=== PATIENT | female | born 2000 | race Hispanic/Latino ===

== ENCOUNTER 2021-02-06 16:53 | Outpatient (CLI) | payer MEDICAID ==
[2021-02-06] MEDS ORDERED: LACTATED RINGERS 500 ML IV ONE (18:20)
[2021-02-06 19:14] LABS: Bacteria,Urine 3+ /HPF (Negative); Bilirubin,Urine NEG (Negative); Blood,Urine NEG (Negative); Color,Urine Yellow (Yellow); Mucus,Urine FEW /HPF; Protein,Urine <15 mg/dL mg/dL (Negative); Urobilinogen,Urine < 2.0 mg/dL (<2.0)
[2021-02-06] MEDS ORDERED: LACTATED RINGERS 1,000 ML IV ONE (19:16)
[2021-02-06 19:57] VITALS: BP 116/74
[2021-02-06] MEDS ORDERED: ACETAMINOPHEN 500 MG TAB PO ONE (20:09)
== END 2021-02-06 21:00 | disposition home or self-care (01) ==
LOC: TRG 16:53 → APU 16:54 → TRG 21:00
PROVIDERS: ATTEND Obstetrics & Gynecology
DX: O26.892 Other specified pregnancy related conditions, second trimester (principal); R42 Dizziness and giddiness; R51.9 Headache, unspecified; O47.02 False labor before 37 completed weeks of gestation, second trimester; Z3A.24 24 weeks gestation of pregnancy
CPT/HCPCS: 59025; 81001; 96360; J7120

== ENCOUNTER 2021-06-30 14:54 | Emergency (ER) | payer MEDICAID ==
[2021-06-30 15:02] VITALS: BP 141/84
--- NOTE | 2021-06-30 15:41 | Emergency Department Report ---
ED Female HPI - General Chief complaint: Vaginal Bleeding Stated complaint: ABD PAINS Time Seen by Provider: 06/30/21 15:08 Source: patient Mode of arrival: Ambulatory Limitations: No Limitations - History of Present Illness Initial comments: 20-year-old female that is 4 weeks presents to the emergency room for heavy vaginal bleeding. For the last 2 days. Patient states that the bleeding had stopped after having her and then started back up 2 days ago. Patient endorsed that she had a blood transfusion after her C- section. She does complain of a headache. She states that they placed her on iron when she was discharged. Patient states she had no complications during her but had to have a as her hips were too narrow to deliver. She was seen by GRAPHIC DESIGN INTERN who delivered her baby. She states her pains a 5-6 out of 10 is intermittent. She states walking makes it worse and sitting makes it better. Patient delivered on May 29, 2021 via . She is 1 para 1. She states that she has made contact with her GRAPHIC DESIGN INTERN and they referred her to follow-up at the hospital. MD Complaint: vaginal bleeding, pelvic pain Onset/Timin -: days(s) Location: suprapubic Severity scale (0 -10): 6 Quality: sharp Consistency: intermittent Worsens with: movement Are you Now?: No Last Menstrual Period: 05/29/21 EDC: 03/05/22 Associated Symptoms: vaginal bleeding. denies: abdominal pain, nausea/vomiting - Related Data Sexually active: Yes (Not since having her baby 05/29/21) : 1 Para: 1 Home Medications Medication Instructions Recorded Confirmed Last Taken One Daily Tablet 1 tab PO DAILY 05/28/21 05/28/21 1 Month Ago ~04/27/21 1 tab Previous Rx's Medication Instructions Recorded Last Taken Type Docusate Sodium [Colace] 100 mg PO BID PRN #60 capsule 05/29/21 Unknown Rx Ferrous Sulfate [Feosol 325 MG tab] 325 mg PO QDAY #60 tablet 05/29/21 Unknown Rx Ibuprofen [Motrin 800 MG tab] 800 mg PO Q8HR PRN #30 tablet 05/29/21 Unknown Rx Lidocain2.5%/Prilocai2.5% [Emla] 2 gm TP ONCE #1 tube 05/29/21 Unknown Rx oxyCODONE /ACETAMINOPHEN [Percocet 1 tab PO Q4HR #30 tab 05/29/21 Unknown Rx 5/325] Nitrofurantoin [place]/M-Cryst 100 mg PO Q12HR 10 Days #20 capsule 06/30/21 Unknown Rx [Macrobid CAP] Allergies Allergy/AdvReac Type Severity Reaction Status Date / Time No Known Allergies Allergy Verified 05/28/21 08:28 ED Review of Systems ROS: Stated complaint: ABD PAINS Other details as noted in HPI Comment: All other systems reviewed and negative ED Past Medical Hx - Past Medical History Hx Hypertension: No Hx Heart Attack/AMI: No Hx Diabetes: No Hx Deep Vein Thrombosis: No Hx Liver Disease: No Hx Renal Disease: No Hx Sickle Cell Disease: No Hx Seizures: No Hx Asthma: No Hx COPD: No Hx HIV: No - Surgical History Hx Pacemaker: No Hx Internal Defibrillator: No - Social History Smoking Status: Never Smoker - Medications Home Medications: Home Medications Medication Instructions Recorded Confirmed Last Taken Type One Daily Tablet 1 tab PO DAILY 05/28/21 05/28/21 1 Month Ago History ~04/27/21 1 tab Docusate Sodium [Colace] 100 mg PO BID PRN #60 capsule 05/29/21 Unknown Rx Ferrous Sulfate [Feosol 325 MG tab] 325 mg PO QDAY #60 tablet 05/29/21 Unknown Rx Ibuprofen [Motrin 800 MG tab] 800 mg PO Q8HR PRN #30 tablet 05/29/21 Unknown Rx Lidocain2.5%/Prilocai2.5% [Emla] 2 gm TP ONCE #1 tube 05/29/21 Unknown Rx oxyCODONE /ACETAMINOPHEN [Percocet 1 tab PO Q4HR #30 tab 05/29/21 Unknown Rx 5/325] Nitrofurantoin [place]/M-Cryst 100 mg PO Q12HR 10 Days #20 capsule 06/30/21 Un known Rx [Macrobid CAP] ED Physical Exam - General Limitations: No Limitations General appearance: alert, in no apparent distress - Head Head exam: Present: atraumatic, normocephalic - Eye Eye exam: Present: normal appearance - ENT ENT exam: Present: mucous membranes moist - Neck Neck exam: Present: normal inspection - Respiratory Respiratory exam: Present: normal lung sounds bilaterally. Absent: respiratory distress - Cardiovascular Cardiovascular Exam: Present: regular rate, normal rhythm. Absent: systolic murmur, diastolic murmur, rubs, gallop - GI/Abdominal GI/Abdominal exam: Present: soft, normal bowel sounds - Extremities Exam Extremities exam: Present: normal inspection - Back Exam Back exam: Present: normal inspection - Neurological Exam Neurological exam: Present: alert, oriented X3 - Psychiatric Psychiatric exam: Present: normal affect, normal mood - Skin Skin exam: Present: warm, dry, intact, normal color. Absent: rash ED Course Vital Signs 06/30/21 14:59 Temperature 98.8 F Pulse Rate 111 H Respiratory 16 Rate Blood Pressure 141/84 [Right] O2 Sat by Pulse 94 Oximetry ED Medical Decision Making - Lab Data Result diagrams: 06/30/21 15:48 06/30/21 15:48 Laboratory Tests 06/30/21 06/30/21 06/30/21 15:48 15:48 15:48 WBC 5.3 RBC 4.59 Hgb 12.2 Hct 36.1 MCV 79 MCH 27 L MCHC 34 RDW 16.0 H Plt Count 305 Lymph % (Auto) 29.1 [place] % (Auto) 6.0 Eos % (Auto) 7.9 H Baso % (Auto) 0.8 Lymph # (Auto) 1.5 [place] # (Auto) 0.3 Eos # (Auto) 0.4 Baso # (Auto) 0.0 Seg Neutrophils % 56.2 Seg Neutrophils # 3.0 PT 14.1 INR 1.03 APTT 28.7 Sodium 140 Potassium 3.9 Chloride 103.9 Carbon Dioxide 23 Anion Gap 17 BUN 7 Creatinine 0.5 L Estimated GFR > 60 BUN/Creatinine Ratio 14 Glucose 103 H Calcium 6.7 L Total Bilirubin 0.30 AST 16 ALT 12 Alkaline Phosphatase 149 H Total Protein 7.5 Albumin 4.4 Albumin/Globulin Ratio 1.4 - Medical Decision Making 20-year-old female that is 4 weeks presents to the emergency room for heavy vaginal bleeding. For the last 2 days. Patient states that the bleeding had stopped after having her and then started back up 2 days ago. Patient endorsed that she had a blood transfusion after her C- section. She does complain of a headache. She states that they placed her on iron when she was discharged. Patient states she had no complications during her but had to have a as her hips were too narrow to deliver. She was seen by GRAPHIC DES[employer] INTERN who delivered her baby. She states her pains a 5-6 out of 10 is intermittent. She states walking makes it worse and sitting makes it better. Patient delivered on May 29, 2021 via . She is 1 para 1. She states that she has made contact with her GRAPHIC DESIGN INTERN and they referred her to follow-up at the hospital. CBC UA, CMP PT PTT has been ordered. Critical care attestation.: If time is entered above; I have spent that time in minutes in the direct care of this critically ill patient, excluding procedure time. ED Disposition Clinical Impression: Dysmenorrhea, UTI (urinary tract infection) Disposition: HOME / SELF CARE / HOMELESS Is pt being admited?: No Does the pt Need Aspirin: No Condition: Stable Instructions: Dysmenorrhea, [id number] Additional Instructions: Complete antibiotics as prescribed. As she has a urinary tract infection. Follow-up with your GRAPHIC DESIGN INTERN. Tylenol ibuprofen for pain Prescriptions: Nitrofurantoin [place]/M-Cryst [Macrobid CAP] 100 mg PO Q12HR 10 Days #20 capsule Referrals: [facility] [Provider Group] - 3-5 Days
[2021-06-30 16:37] LABS: Alanine Aminotransferase 12 units/L (7-56); Albumin 4.4 g/dL (3.9-5); Blood Urea Nitrogen 7 mg/dL (7-17); Calcium 6.7 mg/dL (8.4-10.2); Hemolysis Index 3
[2021-06-30 16:38] LABS: BUN/Creatinine Ratio 14
[2021-06-30 16:42] LABS: INR 1.03 (0.87-1.13)
[2021-06-30 16:43] LABS: Partial Thromboplastin Time 28.7 Sec. (24.2-36.6)
[2021-06-30 17:33] LABS: Basophils % (Auto) 0.8 % (0.0-1.8); Eosinophils # (Auto) 0.4 K/mm3 (0.0-0.4); Eosinophils % (Auto) 7.9 % (0.0-4.3); Hematocrit 36.1 % (30.3-42.9); Hemoglobin 12.2 gm/dl (10.1-14.3); Lymphocytes # (Auto) 1.5 K/mm3 (1.2-5.4); Lymphocytes % (Auto) 29.1 % (13.4-35.0); Mean Corpuscular HGB Conc 34 % (30-34); Mean Corpuscular Volume 79 fl (79-97); Monocytes # (Auto) 0.3 K/mm3 (0.0-0.8); Platelet Count 305 K/mm3 (140-440); Red Blood Count 4.59 M/mm3 (3.65-5.03)
[2021-06-30 18:51] LABS: Bilirubin,Urine NEG (Negative); Blood,Urine LG (Negative); Color,Urine Red (Yellow); Urobilinogen,Urine < 2.0 mg/dL (<2.0)
== END 2021-06-30 20:34 | disposition home or self-care (01) ==
LOC: ED 14:54
DX: N94.6 Dysmenorrhea, unspecified (principal); N39.0 Urinary tract infection, site not specified
CPT/HCPCS: 36415; 80053; 81001; 85025; 85610; 85730; 87086; 99283